=== PATIENT | female | born 1980 ===

== ENCOUNTER 2017-09-24 18:56 | Emergency (ER) | payer OTHER ==
[~2017-09-24] VITALS: Ht 152.4 cm; Wt 89.4 kg
[~2017-09-24 18:56] MED LIST: ALAVERT10 MG; LOSARTAN-HCTZ1 EACH
[2017-09-25] MEDS ORDERED: PERCOCET 5-3251 EACH PO (07:49)
[2017-09-25] MEDS ORDERED: PHENERGAN25 MG PO (07:49)
== END 2017-09-25 08:00 | disposition home or self-care (01) ==
LOC: ER 18:56
DX: K52.9 Noninfective gastroenteritis and colitis, unspecified (principal); N80.1 Endometriosis of ovary

== ENCOUNTER 2020-12-13 16:17 | Emergency (ER) | payer OTHER ==
[~2020-12-13] VITALS: Ht 149.9 cm; Wt 72.6 kg
[~2020-12-13 16:17] MED LIST changes: +PERCOCET 5-3251 EACH PO; +PHENERGAN25 MG PO
[2020-12-13] MEDS ORDERED: NEURONTIN300 MG (17:00)
[2020-12-13] MEDS ORDERED: PERCOCET 5-3251 EACH PO (22:31)
[2020-12-13] MEDS ORDERED: ONDANSETRON HCL4 MG PO (22:31)
[2020-12-13] MEDS ORDERED: KETO10TA2 PO (22:31)
[2020-12-13] MEDS ORDERED: LEVSIN0.125 MG PO (22:34)
[2020-12-13] MEDS ORDERED: INTESTINEX680 M2 PO (22:34)
== END 2020-12-13 22:50 | disposition home or self-care (01) ==
LOC: ER 16:17
DX: R10.31 Right lower quadrant pain (principal); R10.2 Pelvic and perineal pain

== ENCOUNTER 2021-10-05 19:52 | Emergency (ER) | payer OTHER ==
[~2021-10-05] VITALS: Ht 154.9 cm; Wt 76.2 kg
[~2021-10-05 19:52] MED LIST changes: +INTESTINEX680 M2 PO; +KETO10TA2 PO; +LEVSIN0.125 MG PO; +NEURONTIN300 MG; +ONDANSETRON HCL4 MG PO
[2021-10-05] MEDS ORDERED: HYZAAR 100-12.1 EACH PO (20:32)
[2021-10-05] MEDS ORDERED: ACID CONTROLLER10 MG PO (20:32)
[2021-10-05] MEDS ORDERED: NORFLEX100MG PO (23:16)
[2021-10-05] MEDS ORDERED: MEDROLPACK PO (23:16)
== END 2021-10-06 00:08 | disposition home or self-care (01) ==
LOC: ER 19:52
DX: R07.89 Other chest pain (principal)

== ENCOUNTER 2022-09-26 20:27 | Emergency (ER) | payer OTHER ==
[~2022-09-26] VITALS: Ht 160 cm; Wt 85.3 kg
[~2022-09-26 20:27] MED LIST changes: +ACID CONTROLLER10 MG PO; +HYZAAR 100-12.1 EACH PO; +MEDROLPACK PO; +NORFLEX100MG PO
[2022-09-26] MEDS ORDERED: PERCOCET 10-321 EACH (20:39)
[2022-09-26] MEDS ORDERED: LYRICA50 MG (20:39)
== END 2022-09-26 23:58 | disposition home or self-care (01) ==
LOC: ER 20:27
DX: J04.0 Acute laryngitis (principal); Z20.822 Contact with and (suspected) exposure to COVID-19; Z88.8 Allergy status to other drugs, medicaments and biological substances